=== PATIENT | male | born 1985 | race Caucasian/White ===

== ENCOUNTER 2021-09-08 23:00 | Emergency (ER) | payer OTHER ==
[2021-09-09 02:17] LABS: BASOPHIL 0.2 % (0-2); EOSINOPHIL 0.2 % (0-5); HCT 46.2 % (42.0-52.0); LYMPHOCYTE 16.5 % (15-48); MCH 30.2 pg (25.0-31.0); MCHC 34.6 g/dL (32.0-36.0); MCV 87.2 fL (78.0-100.0); MONOCYTE 5.4 % (0-12); MPV 10.2 fL (6.0-9.5); NEUTROPHIL 77.3 % (41-80); NRBC 0; PLT 219 K/uL (150-400); RDW 12.3 % (11.5-14.0); WBC 13.5 K/uL (4.0-10.5)
[2021-09-09 02:48] LABS: ALBUMIN 4.1 g/dL (3.4-5.0); BILIRUBIN - TOTAL 0.4 mg/dL (0.2-1.0); BUN/CREAT RATIO (CALC) 19.2 RATIO; CREATININE 0.73 mg/dL (0.67-1.17); POTASSIUM 4.2 mmol/L (3.5-5.1); TOTAL PROTEIN 7.1 g/dL (6.4-8.2)
[2021-09-09] MEDS ORDERED: BENTYL10 MG PO (04:58)
== END 2021-09-09 05:22 | disposition home or self-care (01) ==
LOC: FER 23:00
PROVIDERS: Emergency Medicine Emergency Medical Services
DX: R55 Syncope and collapse (principal); R11.2 Nausea with vomiting, unspecified; R10.12 Left upper quadrant pain; I10 Essential (primary) hypertension; E78.5 Hyperlipidemia, unspecified; Z79.899 Other long term (current) drug therapy
CPT/HCPCS: 36415; 74022; 80053; 83605; 83690; 85025; 93005; J7030